=== PATIENT | male | born 1945 ===

== ENCOUNTER 2020-09-21 14:45 | Emergency (ER) | payer MEDICARE, BC ==
[~2020-09-21] VITALS: Ht 175.3 cm; Wt 119.5 kg
[2020-09-21 14:51] VITALS: TEMP 98.1
[2020-09-21 15:20] LABS: BASO % 0.5 % (0.0-2.0); EOS # 0.2 (0.0-0.7); EOS % 3.3 % (0-4.0); GRAN # 4.2 (1.4-6.5); GRAN % 65.4 % (42.2-75.2); HEMOGLOBIN 11.3 g/dl (13.5-18.0); LYMPH # 1.3 (1.2-3.4); LYMPH % 20.6 % (20.0-51.0); MEAN CELL VOLUME 88 fl (80.0-100.0); MEAN CORPUSCULAR HEMOGLOBIN 29 pg (27.0-31.0); MEAN CORPUSCULAR HGB CONC 34 g/dl (33.0-37.0); MEAN PLATELET VOLUME 9.6 fl (7.4-10.4); MONO # 0.6 (0.1-0.6); PLATELET COUNT 177 K/mm3 (130-400); RED BLOOD COUNT 3.84 M/mm3 (4.20-5.60); REDCELL DISTRIBUTION WIDTH-CV 12.3 % (11.5-14.5)
[2020-09-21 15:24] LABS: HEMATOCRIT 33.7 % (42.0-52.0)
[2020-09-21] MEDS ORDERED: NITROSTAT0.4 MG/TAB SL (15:29)
[2020-09-21] MEDS ORDERED: PROTONIX20 MG PO (15:30)
[2020-09-21] MEDS ORDERED: RANEXA1000 MG PO (15:30)
[2020-09-21 15:31] LABS: ALANINE AMINOTRANSFERASE 25 U/L (4-49); ALBUMIN 4.1 gm/dL (3.5-5.0); ALKALINE PHOSPHATASE 37 U/L (50-136); ANION GAP 11 mmol/L (7-16); AST,SGOT 28 U/L (15-37); BILIRUBIN,TOTAL 0.5 mg/dL (0.0-1.0); BLOOD UREA NITROGEN 29 mg/dL (9-20); CALCIUM 9.1 mg/dL (8.4-10.2); CARBON DIOXIDE 24 mmol/L (22-30); CHLORIDE 104 mmol/L (98-107); CREATININE, serum 1.24 (0.66-1.25); GLUCOSE 182 mg/dL (74-106); POTASSIUM 4.8 mmol/L (3.4-5.0); SODIUM 138 mmol/L (137-145); TOTAL PROTEIN 6.8 gm/dL (6.4-8.2)
[2020-09-21] MEDS ORDERED: BETAPACE 80MG80 MG PO (15:31)
[2020-09-21] MEDS ORDERED: ELIQUIS 5MG PO (15:31)
[2020-09-21] MEDS ORDERED: PRINIVIL10 MG PO (15:32)
[2020-09-21] MEDS ORDERED: MAG-OX 400400 MG/TAB PO (15:32)
[2020-09-21 15:33] LABS: C-REACTIVE PROTEIN < 0.5 mg/dL (0.0-0.9)
[2020-09-21] MEDS ORDERED: CRESTOR20 MG PO (15:34)
[2020-09-21] MEDS ORDERED: COREG12.5 MG PO (15:34)
[2020-09-21] MEDS ORDERED: LASIX 20MG TABL20 MG PO (15:35)
[2020-09-21] MEDS ORDERED: IMDUR 60MG60 MG/TAB PO (15:35)
[2020-09-21] MEDS ORDERED: JANUMET 1000 MG1 TA1 PO (15:36)
[2020-09-21 15:45] LABS: PROLACTIN 15.7 ng/mL (3.7-17.9)
[2020-09-21 17:55] VITALS: BP 132/73; PULSE 61
== END 2020-09-21 17:55 | disposition short-term general hospital (02) ==
LOC: COL.ER 14:45
PROVIDERS: Family Medicine
DX: I47.2 Ventricular tachycardia (principal); I25.10 Atherosclerotic heart disease of native coronary artery without angina pectoris; I10 Essential (primary) hypertension; E11.9 Type 2 diabetes mellitus without complications; E66.9 Obesity, unspecified; K21.9 Gastro-esophageal reflux disease without esophagitis; I48.91 Unspecified atrial fibrillation; Z79.01 Long term (current) use of anticoagulants; Z95.9 Presence of cardiac and vascular implant and graft, unspecified; Z87.891 Personal history of nicotine dependence; Z79.84 Long term (current) use of oral hypoglycemic drugs; Z68.38 Body mass index [BMI] 38.0-38.9, adult
CPT/HCPCS: J0282; J7060; J7120